=== PATIENT | male | born 1960 | race African-American/Black ===

== ENCOUNTER 2018-04-06 23:10 | Emergency (ER) | payer SELFPAY ==
[~2018-04-06] VITALS: Ht 188 cm; Wt 80.7 kg
[2018-04-06] MEDS ORDERED: Dicyclomine HCl 10mg/5ml oral soln ORAL ONE (23:45)
[2018-04-06] MEDS ORDERED: Lidocaine 2% Visc 15ml soln ORAL ONE (23:45)
[2018-04-06] MEDS ORDERED: Mylanta II UD 30ml ORAL ONE (23:45)
[2018-04-07 00:09] LABS: ANION GAP 12 mmol/L (5-15); BLOOD UREA NITROGEN 30 mg/dL (7-18); CALCIUM 9.8 MG/DL (8.5-10.1); CARBON DIOXIDE 28 MMOL/L (21-32); CHLORIDE 97 MMOL/L (98-107); CREATININE 1.2 MG/DL (0.55-1.30); EOSINOPHILS % (AUTO) 0.1 % (0.0-3.0); HEMOGLOBIN 14.3 G/DL (14.2-18.0); LYMPHOCYTES % (AUTO) 15.5 % (20.0-45.0); MEAN CORPUSCULAR VOLUME 89 FL (80-99); NEUTROPHILS % (AUTO) 76.4 % (45.0-75.0); PLATELET COUNT 382 K/UL (150-450); POTASSIUM 3.4 MMOL/L (3.5-5.1); RED BLOOD COUNT 4.74 M/UL (4.70-6.10); RED CELL DISTRIBUTION WIDTH 13.2 % (11.6-14.8); SODIUM 137 MMOL/L (136-145); WHITE BLOOD COUNT 11.1 K/UL (4.8-10.8)
[2018-04-07 00:14] LABS: ALANINE AMINOTRANSFERASE 18 U/L (12-78); ALBUMIN 4.6 G/DL (3.4-5.0); ALBUMIN/GLOBULIN RATIO 1.1 (1.0-2.7); ALKALINE PHOSPHATASE 52 U/L (46-116); ASPARTATE AMINO TRANSFERASE 13 U/L (15-37); BILIRUBIN,TOTAL 0.4 MG/DL (0.2-1.0)
[2018-04-07] MEDS ORDERED: ONDANSETRON ODT4 MG BC (01:07)
[2018-04-07] MEDS ORDERED: RANITIDINE HCL150 MG ORAL (01:07)
[2018-04-07 01:12] VITALS: BP 127/86
[2018-04-07] MEDS ORDERED: DIPHENHYDRAMINE25 M1 ORAL (01:18)
--- NOTE | 2018-04-07 03:04 | Emergency Room Report ---
History of Present Illness General Chief Complaint: Abdominal Pain Source: Patient Present Illness HPI 58-year-old male presents ED complaining of abdominal pain 4 days. Pain is epigastric, sharp, 5 out of 10, nonradiating. Notes nausea, denies vomiting. Denies any diarrhea. Denies chest pain or shortness of breath. Denies sick contacts or recent travel. No other aggravating relieving factors. Denies any other associated symptoms Allergies: Coded Allergies: No Known Allergies (Unverified , 04/06/18) Patient History Past Medical History: asthma Past Surgical History: none Pertinent Family History: none Social History: Denies: smoking, alcohol use, drug use Immunizations: UTD Reviewed Nursing Documentation: PMH: Agreed; PSxH: Agreed Nursing Documentation-PMH Hx Asthma: Yes Review of Systems All Other Systems: negative except mentioned in HPI Physical Exam Vital Signs Date Time Temp Pulse Resp B/P (MAP) Pulse Ox O2 Delivery O2 Flow Rate FiO2 04/06/18 23:15 98.1 94 18 127/86 98 Room Air 98.1 Sp02 EP Interpretation: reviewed, normal General Appearance: no apparent distress, alert, GCS 15, non-toxic Head: normocephalic, atraumatic Eyes: bilateral eye normal inspection, bilateral eye PERRL ENT: hearing grossly normal, normal pharynx, no angioedema, normal voice Neck: full range of motion, supple/symm/no masses Respiratory: chest non-tender, lungs clear, normal breath sounds, speaking full sentences Cardiovascular #1: regular rate, rhythm, no edema Cardiovascular #2: 2+ carotid (R), 2+ carotid (L), 2+ radial (R), 2+ radial (L) , 2+ dorsalis pedis (R), 2+ dorsalis pedis (L) Gastrointestinal: normal bowel sounds, soft, non-distended, no guarding, no rebound, tenderness - epigastric Rectal: deferred Genitourinary: normal inspection, no CVA tenderness Musculoskeletal: back normal, gait/station normal, normal range of motion, non- tender Neurologic: alert, oriented x3, responsive, motor strength/tone normal, sensory intact, speech normal Psychiatric: judgement/insight normal, memory normal, mood/affect normal, no suicidal/homicidal ideation Reflexes: 3+ bicep (R), 3+ bicep (L), 3+ tricep (R), 3+ tricep (L), 3+ knee (R) , 3+ knee (L) Skin: normal color, no rash, warm/dry, well hydrated Lymphatic: no adenopathy Medical Decision Making Diagnostic Impression: Primary Impression: Gastritis Qualified Codes: K29.00 - Acute gastritis without bleeding ER Course Hospital Course 58-year-old M presents to ED with epigastric pain with N/V. differential diagnosis: gastritis, SBO, cholecystits Clinical course Patient placed on stretcher. On athletic monitor. After initial history and physical I ordered labs, GI cocktail, pepcid and zofran Labs - no leukocytosis, no electrolyte abnormalities, LFTs normal, UA unremarkable Upon reassessment, patient states pain has improved. findings consistent with gastritis I feel this is a highly complex case requiring extensive working including EKG/ Rhythm strip, Xray/CT/US, Blood/urine lab work, repeat exams while in ED, and administration of strong opiates/narcotics for pain control, admission to hospital or close patient follow up. Diagnosis - gastritis Stable and discharged to home with prescriptions for Zantac, zofran. Followup with PMD. Return to ED if symptoms recur or worsen Labs Test 04/06/18 23:40 White Blood Count 11.1 K/UL (4.8-10.8) Red Blood Count 4.74 M/UL (4.70-6.10) Hemoglobin 14.3 G/DL (14.2-18.0) Hematocrit 42.0 % (42.0-52.0) Mean Corpuscular Volume 89 FL (80-99) Mean Corpuscular Hemoglobin 30.2 PG (27.0-31.0) Mean Corpuscular Hemoglobin Concent 34.1 G/DL (32.0-36.0) Red Cell Distribution Width 13.2 % (11.6-14.8) Platelet Count 382 K/UL (150-450) Mean Platelet Volume 4.9 FL (6.5-10.1) Neutrophils (%) (Auto) 76.4 % (45.0-75.0) Lymphocytes (%) (Auto) 15.5 % (20.0-45.0) Monocytes (%) (Auto) 7.0 % (1.0-10.0) Eosinophils (%) (Auto) 0.1 % (0.0-3.0) Basophils (%) (Auto) 1.0 % (0.0-2.0) Sodium Level 137 MMOL/L (136-145) Potassium Level 3.4 MMOL/L (3.5-5.1) Chloride Level 97 MMOL/L (98-107) Carbon Dioxide Level 28 MMOL/L (21-32) Anion Gap 12 mmol/L (5-15) Blood Urea Nitrogen 30 mg/dL (7-18) Creatinine 1.2 MG/DL (0.55-1.30) Estimat Glomerular Filtration Rate > 60 mL/min (>60) Glucose Level 114 MG/DL (74-106) Calcium Level 9.8 MG/DL (8.5-10.1) Total Bilirubin 0.4 MG/DL (0.2-1.0) Aspartate Amino Transf (AST/SGOT) 13 U/L (15-37) Alanine Aminotransferase (ALT/SGPT) 18 U/L (12-78) Alkaline Phosphatase 52 U/L (46-116) Total Protein 8.9 G/DL (6.4-8.2) Albumin 4.6 G/DL (3.4-5.0) Globulin 4.3 g/dL Albumin/Globulin Ratio 1.1 (1.0-2.7) Lipase 94 U/L (73-393) Last Vital Signs Date Time Temp Pulse Resp B/P (MAP) Pulse Ox O2 Delivery O2 Flow Rate FiO2 04/07/18 01:12 98.1 18 127/86 98 Room Air 98.1 04/06/18 23:15 94 Status: improved Disposition: HOME, SELF-CARE Condition: Stable Scripts Diphenhydramine Hcl* (DIPHENHYDRAMINE HCL*) 25 Mg Capsule 50 MG ORAL QHS PRN for sleep, #30 CAP 0 Refills Prov: Jeffy Jovel MD 04/07/18 Ranitidine Hcl* (ZANTAC*) 150 Mg Tablet 150 MG ORAL TWICE A DAY, #30 TAB Prov: Jeffy Jovel MD 04/07/18 Ondansetron Odt* (ZOFRAN ODT*) 4 Mg Tab.rapdis 4 MG BC EVERY 6 HOURS PRN for Nausea & Vomiting, #20 TAB 0 Refills Prov: Jeffy Jovel MD 04/07/18 Patient Instructions: Gastritis, Adult, [id number] Jeffy Jovel MD Apr 07, 2018 03:04
== END 2018-04-07 01:26 | disposition home or self-care (01) ==
LOC: EMR 23:35
DX: K29.70 Gastritis, unspecified, without bleeding (principal)
CPT/HCPCS: 36415; 80053; 83690; 85025; 96361; 96372; 96374; 96375; 99284; J2405